=== PATIENT | male | born 1950 | race Caucasian/White ===

== ENCOUNTER 2018-08-31 09:43 | Day surgery (SDC) | payer MEDICARE ==
[~2018-08-31] VITALS: Ht 175.3 cm; Wt 120.8 kg
[~2018-08-31 09:43] MED LIST: GEMF600T5 PO; LATA7.5D OU; LOSA25TA41 PO; METF-444 PO; METO-391 PO; PRAV40TA3 PO; PREG100C PO; SODIUM CHLORIDE 0.9% 1000ML 1,000 ML IV ONE; TAMS0.4C32 PO; TERB250T51 PO
[2018-08-31 12:19] VITALS: BP 142/77
[2018-08-31] MEDS ORDERED: ESOM40CA54 PO (12:35)
[2018-08-31] MEDS ORDERED: PROPOFOL 10 MG/ML 20ML VIAL IV ONE (12:54)
[2018-08-31 13:15] VITALS: BP 126/58
[2018-08-31 13:20] VITALS: BP 144/88
[2018-08-31 13:25] VITALS: BP 129/69
[2018-08-31 13:32] VITALS: BP 167/87
== END 2018-08-31 14:00 | disposition home or self-care (01) ==
LOC: DAH 09:43 → ENDO 09:43
PROVIDERS: ATTEND Internal Medicine
DX: K22.2 Esophageal obstruction (principal); K22.8 Other specified diseases of esophagus; K31.89 Other diseases of stomach and duodenum; C15.5 Malignant neoplasm of lower third of esophagus; I10 Essential (primary) hypertension; E78.5 Hyperlipidemia, unspecified; E11.9 Type 2 diabetes mellitus without complications; Z68.39 Body mass index [BMI] 39.0-39.9, adult; Z79.899 Other long term (current) drug therapy; Z80.0 Family history of malignant neoplasm of digestive organs; E66.01 Morbid (severe) obesity due to excess calories
CPT/HCPCS: 43237; 82948 ×2; 93005; A4606; J2704; J7030; 43259

== ENCOUNTER → 2019-04-13 | Outpatient (CLI) | payer OTHER ==
[~2019-04-13] MED LIST changes: +DIATR MEGLU/DIATRIZOATE SODIUM 30 ML BOTTLE ONE; +ESOM40CA54 PO; -SODIUM CHLORIDE 0.9% 1000ML 1,000 ML IV ONE; -TERB250T51 PO
== END | disposition home or self-care (01) ==
LOC: RAH 10:15
PROVIDERS: ATTEND Internal Medicine
DX: C15.9 Malignant neoplasm of esophagus, unspecified (principal)
CPT/HCPCS: 74220; Q9963

== ENCOUNTER → 2019-04-27 | Outpatient (CLI) | payer OTHER | END | disposition home or self-care (01) | LOC: RAH 08:11 | PROVIDERS: ATTEND Internal Medicine | DX: C15.9 Malignant neoplasm of esophagus, unspecified (principal) | CPT/HCPCS: 74220; Q9963 ==